=== PATIENT | female | born 1940 | race Caucasian/White ===

== ENCOUNTER 2016-08-11 14:46 | Inpatient (IN) | payer MEDICARE, BC ==
[~2016-08-11 14:46] MED LIST: PROP120; REST15CA
[2016-08-11 19:17] VITALS: BP 120/77; PULSE 94; RESP 16; TEMP 97.3; O2SAT 97
[2016-08-12 05:55] VITALS: BP 101/56; PULSE 67; RESP 18; TEMP 98.6
[2016-08-12 11:22] VITALS: BP 128/71; PULSE 62; RESP 16; TEMP 97.8; O2SAT 99
[2016-08-12] MEDS ORDERED: hydrOXYzine HCL 50 MG TAB PO PRN (13:15)
[2016-08-12] MEDS ORDERED: MAGNESIUM HYDROXIDE SUSP 30 ML CUP PO PRN (13:15)
[2016-08-12] MEDS ORDERED: ALUMINUM/MAGNESIUM/SIMETH 30 ML CUP PO PRN (13:15)
[2016-08-12] MEDS ORDERED: FLUMAZENIL 0.5 MG/5 ML VIAL IV PUSH PRN (13:15)
[2016-08-12] MEDS ORDERED: LORazepam 2 MG TAB PO PRN (13:15)
[2016-08-12] MEDS ORDERED: LORazepam 1 MG TAB PO PRN (13:15)
[2016-08-12] MEDS ORDERED: ACETAMINOPHEN 325 MG TAB PO PRN (13:15)
[2016-08-12] MEDS ORDERED: LORazepam 2 MG/ML VIAL IV PUSH PRN ×4 (13:15)
--- NOTE | 2016-08-12 13:33 | HHI.HP ---
Provisional Diagnosis Admission Date August 11, 2016 at 17:24 [place] I. Brief psychotic episode F 23, alcohol use Z 78.9 Certification of Person's Competence To Provide Express and Informed Consent I have personally examined Stefani Wilson , a person being served at [facility] on, August 12, 2016 13:11. Express and informed consent means consent voluntarily given in writing, by a competent person, after sufficient explanation and disclosure of the subject matter involved to enable the person to make a knowing and willful decision without any element of force, fraud, deceit, duress, or other form of constraint or coercion. This person is 18 years of age or older, is not now known to be incompetent to consent to treatment with a guardian advocate, and does not have a health care surrogate or proxy currently making medical treatment decisions. I have found this person to be one of the following: [] Competent to provide express and informed consent, as defined above, for voluntary admission to this facility and is competent to provide express and informed consent for treatment. He/she has the consistent capacity to make well reasoned, willful, and knowing decisions concerning his or her medical or mental health treatment. The person fully and consistently understands the purpose of the admission for examination/placement and is fully capable of personally exercising all rights assured under [place] [] Incompetent to provide express and informed consent to voluntary admission, and this is incompetent to provide express and informed consent to treatment. The person must be transferred to involuntary status and a petition for a guardian advocate filed with the Circuit Court. [] Refusing to provide express and informed consent to voluntary admission but is competent to provide express and informed consent for treatment. The person must be discharged or transferred to involuntary status. Form shall be completed within 24 hours of a person's arrival at the receiving facility and filed in the clinical record of each person: 1. Admitted on a voluntary basis 2. Permitted to provide express and informed consent to his/her own treatment 3. Allowed to transfer from involuntary to voluntary status 4. Prior to permitting a person to consent to his or her own treatment after having been previously found incompetent to consent to treatment. History of Present Illness Capacity: Lacks Capacity (patient lacks capacity to agree for admission, has capacity to agree for medication) HPI Patient is a 76-year-old white female comes here under Flores act from [facility] Flores act dated 08/11/16 0755 hours by a Parish huynh that report reviewed essentially stating that patient was seeing people and animals were not present in claiming that the major AP both/animals are gypsies a titer up then performed a [employer] [employer] maneuver of the seventh floor of her building. There stating the patient takes Ambien and Xanax but has not slept well for about 4 days. Patient's also stated that she fell earlier in the morning and it's unknown if she hit her head. It appears the patient became more angry and agitated with pink questioned by the commercial lawn specialist she also became more angry when her attempted to calm her down becoming more belligerent and appearing as if sure becoming violent. Patient seen screen at that facility urine toxicology positive for benzodiazepines and opiates. At the present time patient standing quietly with me in the eng counselor María Elena and nurse Martine present throughout session. Patient is an alert thin slender white female somewhat disheveled in appearance with a marked [place] accent speaking in a rapid pressured intense manner showing some anxiety and fine tremulousness. Patient appears fairly well oriented to place time and situation, other times also appears to be using approximations to cover perhaps some mild memory issues. She describes these people coming into her home speaking to her describes them as gypsies like nature though showing some rationalization with this. She became somewhat flustered as I question her more in detail. Patient states she has a PhD in psychology was quite active at the [employer] and some mental health programs there. She states that her is a psychiatrist and also worked for the [employer] from [facility] [employer] [facility]. She does make appropriate references to that area. When asked about her own mental health issues she became quite vague and defensive that appear she may have had some type of contact in the past. She does acknowledge being "high strung" like much of her family. She also acknowledges frequent alcohol use basically wine or "wind spritzers" though she denies any legal issues related to that. She makes vague illusion to perhaps using marijuana while in college herself. She denies any physical and/or sexual abuse. Denies any mental illness in her family of origin. This is her second marriage. She has 2 children by her first marriage and is a grandmother. Patient made of vague reference to perhaps a similar psychotic type episode a number of years ago. I did attempt to reach patient's was unsuccessful we will have a counselor attempt to reach him. Would like to environment to meet with us tomorrow morning. At the present time patient meets criteria for further observation under the Flores act thus I'll do first opinion requests a second opinion. Will have hospitalist consult less patient states some history of cholesterol issues and also to observe vague history of a fall. We'll place her on theciwa protocol due to the alcohol abuse history. Will refrain from any antipsychotics at the present time further observe we need further information also for the patient's perhaps a neurology consult might be indicated Review of Systems Constitutional: DENIES: Diaphoretic episodes, Fatigue, Fever, Weight gain, Weight loss, Chills, Dizziness, Change in appetite, Night Sweats Endocrine: DENIES: Abnorml menstrual pattern, Heat/cold intolerance, Polydipsia , Polyuria, Polyphagia Eyes: DENIES: Blurred vision, Diplopia, Eye inflammation, Eye pain, Vision loss , Photosensitivity, Double Vision Ears, nose, mouth, throat: DENIES: Tinnitus, Hearing loss, Vertigo, Nasal discharge, Oral lesions, Throat pain, Hoarseness, Ear Pain, Running Nose, Epistaxis, Sinus Pain, Toothache, Odynophagia Respiratory: DENIES: Apneas, Cough, Snoring, Wheezing, Hemoptysis, Sputum production, Shortness of breath Cardiovascular: DENIES: Chest pain, Palpitations, Syncope, Dyspnea on Exertion , PND, Lower Extremity Edema, Orthopnea, Claudication Gastrointestinal: DENIES: Abdominal pain, Black stools, Bloody stools, Constipation, Diarrhea, Nausea, Vomiting, Difficulty Swallowing, Anorexia Genitourinary: DENIES: Abnormal vaginal bleeding, Dysmenorrhea, Dyspareunia, Sexual dysfunction, Urinary frequency, Urinary incontinence, Urgency, Hematuria , Dysuria, Nocturia, Vaginal discharge Musculoskeletal: DENIES: Joint pain, Muscle aches, Stiffness, Joint Swelling, Back pain, Neck pain Integumentary: DENIES: Abnormal pigmentation, Pruritus, Rash, Nail changes, Breast masses, Breast skin changes, Nipple discharge Hematologic/lymphatic: DENIES: Bruising, Lymphadenopathy Immunologic/allergic: DENIES: Eczema, Urticaria Psychiatric: COMPLAINS OF: Anxiety, Confusion (quite vague and amorphous), Hallucinations (visual and auditory) Past Psych History Psychological trauma history Denies prior physical or sexual abuse Violence risk - others (6 mos) Low Violence risk - self (6 mos) Low Substance Abuse History Drugs/Alcohol past 12 months Patient states frequent alcohol use Past Family Social History Coded Allergies: No Known Allergies (Verified Allergy, Mild, 08/02/06) Reported Medications Temazepam (Restoril)15 Mg Cap 08/02/06 Propranolol ER (Inderal LA)120 Mg Capcr 08/02/06 Family History Patient denies history of mental illness in family of origin Social History Patient twice as 2 adult children and grandchildren by previous marriage Patient's Strengths (min. 2) Patient verbal cooperative able to express herself Physical Exam Patient seen screened a [facility] that exam reviewed and agreed with vital signs blood pressure 120/71 pulse 62 respirations 16 Vital Signs Vital Signs Date Time Temp Pulse Resp B/P Pulse Ox O2 Delivery O2 Flow Rate FiO2 08/12/16 11:22 97.8 62 16 128/71 99 I/O 08/11/16 08/11/16 08/12/16 08:00 16:00 00:00 Intake Total 0 ml Balance 0 ml Mental Status Examination Alert white female appears stated age slightly disheveled oriented to [facility] psychiatric unit in day though that appears to be some diffuse confusion with this also, she is overall cooperative mildly guarded with good eye contact Appearance Slightly disheveled Speech: Pressured, Rapid Orientation: x3 Memory: Impaired (describe) (vaguely fair) Thought Process: Linear Thought Content: Bizarre thinking Language Macedonian Fund of Knowledge Fair Hallucination Type: Auditory, Visual Attention and Concentration: Easily Distracted Suicidal Ideation: No (denies) Previous Suicide Attempts: No (denies) Homicidal Ideation: No (denies) Previous Homicide Attempts: No (denies) Insight: Poor Judgment: Poor Affect: Other (increase range and intensity) Mood: Euthymic, Anxious, Manic Motor Activity: Normal gait Assessment & Plan Problem List: (1) Brief psychotic disorder ICD Code: F23 (2) Alcohol use ICD Code: Z78.9 Assessment & Plan Estimated LOS 3-5: days at this time patient meets criteria for further observation under the Flores act thus I'll do first opinion requests second opinion. We will attempt to arrange meetings with patient's for tomorrow morning to gain further information. We will have a hospitalist consult was also. We'll place her on the ciwa protocol for now. Will refrain from any antipsychotics at the present time Discharge Planning To be determined Request HC Surrog/Guard Advoc?: No Bill Contreras MD August 12, 2016 13:33
--- NOTE | 2016-08-12 14:44 | PD.CONS ---
HPI Service [facility] Hospitalists Consult Requested By psych service Reason for Consult medical management Primary Care Physician Non-Staff Diagnoses: History of Present Illness The patient is a 76-year-old female with past medical history of hypertension, essential tremors, who came to inpatient psych for further evaluation. Hospitalist is consulted for medical management. The patient has no complaints at this time. Says she felt much better. Says her blood pressure is usually controlled and she is taking propanolol for essential tremors and not for blood pressure. She denies having any headaches, change of vision, motor or sensory deficit, palpitations, chest pain or shortness of breath. She has no urinary complaints. No nausea, vomiting, diarrhea or constipation. Review of Systems Except as stated in HPI: all other systems reviewed are Neg Past Family Social History Allergies: Coded Allergies: No Known Allergies (Verified , 08/02/06) Past Medical History Hypertension, essential tremors Past Surgical History Tonsillectomy 4 ya Reported Medications Reported Meds & Active Scripts Active Reported Restoril (Temazepam) 15 Mg Cap Inderal LA (Propranolol HCl) 120 Mg Capcr Family History Denies any medical problems in her family Social History Denies alcohol use, illicit drug use or tobacco use. Physical Exam Vital Signs Vital Signs Date Time Temp Pulse Resp B/P Pulse Ox O2 Delivery O2 Flow Rate FiO2 08/12/16 11:22 97.8 62 16 128/71 99 08/12/16 05:55 98.6 67 18 101/56 08/11/16 19:17 97.3 94 16 120/77 97 Physical Exam GENERAL: This is a pleasant 76-year-old female, well-nourished, well-developed patient, in no apparent distress. Pressured speech. SKIN: No rashes, ecchymoses or lesions. Cool and dry. HEAD: Atraumatic. Normocephalic. No temporal or scalp tenderness. EYES: Pupils equal round and reactive. Extraocular motions intact. No scleral icterus. No injection or drainage. ENT: Nose without bleeding, purulent drainage or septal hematoma. Throat without erythema, tonsillar hypertrophy or exudate. Uvula midline. Airway patent. NECK: Trachea midline. No JVD or lymphadenopathy. Supple, nontender, no meningeal signs. CARDIOVASCULAR: Regular rate and rhythm without murmurs, gallops, or rubs. RESPIRATORY: Clear to auscultation. Breath sounds equal bilaterally. No wheezes , rales, or rhonchi. GASTROINTESTINAL: Abdomen soft, non-tender, nondistended. No hepato-splenomegaly , or palpable masses. No guarding. MUSCULOSKELETAL: Extremities without clubbing, cyanosis, or edema. No joint tenderness, effusion, or edema noted. No calf tenderness. Negative Homans sign bilaterally. NEUROLOGICAL: Awake and alert. Cranial nerves II through XII intact. Motor and sensory grossly within normal limits. Five out of 5 muscle strength in all muscle groups. Normal speech. Assessment and Plan Assessment and Plan 76 yo F with Psychosis , unspecified. Management per psychiatry Hypertension/ essential tremors. Continue Propanolol ER 120 mg daily. Monitor BP. BP appears stable at this time. DVT ppx : ambulation. Discussed Condition With patient, nurse Zoë Villalobos MD August 12, 2016 14:44
[2016-08-12 17:16] VITALS: BP 138/67; PULSE 78; TEMP 98.3; O2SAT 99
[2016-08-12] MEDS: REMOVE OLD NICODERM (NICOTINE) PATCH T-DERMAL SCH (21:00)
[2016-08-13 05:33] VITALS: BP 123/64; PULSE 89; RESP 18; TEMP 98.7
[2016-08-13 06:00] VITALS: BP 123/64; PULSE 89; RESP 18; TEMP 98.7; O2SAT 93
[2016-08-13] MEDS: NICOTINE 21 MG/24 HR PATCH T-DERMAL SCH (09:00)
[2016-08-13] MEDS: PROPRANOLOL HCL LA 120 MG CAP PO SCH (09:00)
[2016-08-13 10:00] VITALS: BP 145/77; PULSE 80; RESP 16
--- NOTE | 2016-08-13 10:37 | PD.CONS ---
Provisional Diagnosis Admission Date August 11, 2016 at 17:24 [place] I. Brief psychotic episode F 23, alcohol use Z 78.9 History of Present Illness Service Psychiatry Consult Requested By Primary Care Physician Non-Staff HPI Patient is a 76-year-old white female [facility] Flores act dated 08/11/16 0755 hours by a Parish huynh that report reviewed essentially stating that patient was seeing people and animals were not present in claiming that the major AP both/animals are gypsies a titer up then performed a [place] maneuver of the seventh floor of her building. There stating the patient takes Ambien and Xanax but has not slept well for about 4 days. Patient's also stated that she fell earlier in the morning and it's unknown if she hit her head. It appears the patient became more angry and agitated with pink questioned by the law secretary she also became more angry when her attempted to calm her down becoming more belligerent and appearing as if sure becoming violent. Patient seen screen at that facility urine toxicology positive for benzodiazepines and opiates. At the present time patient standing quietly with me in the eng counselor María Elena and nurse Martine present throughout session. Patient is an alert thin slender white female somewhat disheveled in appearance with a marked Belarusian accent speaking in a rapid pressured intense manner showing some anxiety and fine tremulousness. Patient appears fairly well oriented to place time and situation, other times also appears to be using approximations to cover perhaps some mild memory issues. She describes these people coming into her home speaking to her describes them as gypsies like nature though showing some rationalization with this. She became somewhat flustered as I question her more in detail. Patient states she has a PhD in psychology was quite active at the [facility] and some mental health programs there. She states that her is a psychiatrist and also worked for the [employer] from [employer]. She does make appropriate references to that area. When asked about her own mental health issues she became quite vague and defensive that appear she may have had some type of contact in the past. She does acknowledge being "high strung" like much of her family. She also acknowledges frequent alcohol use basically wine or "wind spritzers" though she denies any legal issues related to that. She makes vague illusion to perhaps using marijuana while in college herself. She denies any physical and/or sexual abuse. Denies any mental illness in her family of origin. This is her second marriage. She has 2 children by her first marriage and is a grandmother. Patient made of vague reference to perhaps a similar psychotic type episode a number of years ago. I did attempt to reach patient's was unsuccessful we will have a counselor attempt to reach him. Would like to environment to meet with us tomorrow morning. At the present time patient meets criteria for further observation under the Flores act thus I'll do first opinion requests a second opinion. Will have hospitalist consult less patient states some history of cholesterol issues and also to observe vague history of a fall. We'll place her on theciwa protocol due to the alcohol abuse history. Will refrain from any antipsychotics at the present time further observe we need further information also for the patient's perhaps a neurology consult might be indicated Past Family Social History Coded Allergies: No Known Allergies (Verified , 08/02/06) Reported Medications Temazepam (Restoril)15 Mg Cap 08/02/06 Propranolol ER (Inderal LA)120 Mg Capcr 08/02/06 Current Medications Medications (Trade) Dose Ordered Sig/Katya Route Start Time Stop Time Status Last Admin (Tylenol) 650 mg Q4H PRN PO 08/12/16 13:15 (Milk Of Magnesia Liq) 30 ml DAILY PRN PO 08/12/16 13:15 (Mag-Al Plus Susp Liq) 30 ml Q6H PRN PO 08/12/16 13:15 (Habitrol 21 Mg Patch.24 Hr) 1 patch DAILY T-DERMAL 08/13/16 09:00 (Atarax) 50 mg Q6H PRN PO 08/12/16 13:15 Hold (Romazicon Inj) 0.2 mg Q1M PRN IV PUSH 08/12/16 13:15 (Ativan) 1 mg Q4H PRN PO 08/12/16 13:15 Hold (Ativan Inj) 1 mg Q4H PRN IV PUSH 08/12/16 13:15 Hold (Ativan) 2 mg Q2H PRN PO 08/12/16 13:15 Hold (Ativan Inj) 2 mg Q2H PRN IV PUSH 08/12/16 13:15 Hold (Ativan Inj) 2 mg Q1H PRN IV PUSH 08/12/16 13:15 Hold (Ativan Inj) 2 mg Q15M PRN IV PUSH 08/12/16 13:15 Hold Miscellaneous Information 1 HS T-DERMAL 08/12/16 21:00 (Inderal La) 120 mg DAILY PO 08/13/16 09:00 Patient's Strengths (min. 2) Patient verbal cooperative able to express herself Physical Exam Vital Signs Vital Signs Date Time Temp Pulse Resp B/P Pulse Ox O2 Delivery O2 Flow Rate FiO2 08/13/16 06:00 98.7 89 18 123/64 93 I/O 08/12/16 08/12/16 08/13/16 08:00 16:00 00:00 Intake Total 240 ml 480 ml Balance 240 ml 480 ml Mental Status Examination Speech: Pressured, Rapid Orientation: x3 Memory: Impaired (describe) (vaguely fair) Thought Process: Linear Thought Content: Bizarre thinking Hallucination Type: Auditory, Visual Attention and Concentration: Easily Distracted Suicidal Ideation: No (denies) Previous Suicide Attempts: No (denies) Homicidal Ideation: No (denies) Previous Homicide Attempts: No (denies) Insight: Poor Judgment: Poor Affect: Other (increase range and intensity) Mood: Euthymic, Anxious, Manic Motor Activity: Normal gait Assessment & Plan Problem List: (1) Brief psychotic disorder ICD Code: F23 (2) Alcohol use ICD Code: Z78.9 Assessment & Plan Estimated LOS: days Request HC Surrog/Guard Advoc?: No Bart Jacobs MD August 13, 2016 10:37
--- NOTE | 2016-08-13 13:05 | HHI.PR ---
Subjective Remarks In bed, appears in nad. She is feeling good today. No complaints. No palpitations . No tremors. Objective Vitals Vital Signs Date Time Temp Pulse Resp B/P Pulse Ox O2 Delivery O2 Flow Rate FiO2 08/13/16 06:00 98.7 89 18 123/64 93 08/13/16 05:33 98.7 89 18 123/64 08/12/16 17:16 98.3 78 138/67 99 I/O 08/12/16 08/12/16 08/12/16 08/13/16 08/13/16 08/13/16 07:00 15:00 23:00 07:00 15:00 23:00 Intake Total 240 ml 480 ml 240 ml Balance 240 ml 480 ml 240 ml Intake Oral 240 ml 480 ml 240 ml # Voids 1 1 4 Objective Remarks GENERAL: This is a pleasant 76-year-old female, well-nourished, well-developed patient, in no apparent distress. Pressured speech. SKIN: No rashes, ecchymoses or lesions. Cool and dry. HEAD: Atraumatic. Normocephalic. No temporal or scalp tenderness. EYES: Pupils equal round and reactive. Extraocular motions intact. No scleral icterus. No injection or drainage. ENT: Nose without bleeding, purulent drainage or septal hematoma. Throat without erythema, tonsillar hypertrophy or exudate. Uvula midline. Airway patent. NECK: Trachea midline. No JVD or lymphadenopathy. Supple, nontender, no meningeal signs. CARDIOVASCULAR: Regular rate and rhythm without murmurs, gallops, or rubs. RESPIRATORY: Clear to auscultation. Breath sounds equal bilaterally. No wheezes , rales, or rhonchi. GASTROINTESTINAL: Abdomen soft, non-tender, nondistended. No hepato-splenomegaly , or palpable masses. No guarding. MUSCULOSKELETAL: Extremities without clubbing, cyanosis, or edema. No joint tenderness, effusion, or edema noted. No calf tenderness. Negative Homans sign bilaterally. NEUROLOGICAL: Awake and alert. Cranial nerves II through XII intact. Motor and sensory grossly within normal limits. Five out of 5 muscle strength in all muscle groups. Normal speech. A/P Assessment and Plan 76 yo F with Psychosis , unspecified. Management per psychiatry Hypertension/ essential tremors. Continue Propanolol ER 120 mg daily. Monitor BP. BP appears stable at this time. DVT ppx : ambulation. Discussed Condition With patient, nurse Patient is stable at this time. Medically cleared. To follow up as OP with her pCP and consultants. Hospitalist will sign off. Reconsult as need. Zoë Villalobos MD August 13, 2016 13:05
[2016-08-13 14:04] VITALS: BP 132/73; PULSE 87
--- NOTE | 2016-08-13 14:14 | HHI.PYPN ---
Subjective Remarks We met initially with patient's this a.m. along with counselor María Elena. has history of patient being somewhat "mcmanus. That he has had impression that she showed signs of mood instability for significant period of time. But she did have talk therapy with a psychiatrist in the 1970s for various issues. He also acknowledged some mood lability and issues with her family of origin. He himself is a psychiatrist, acknowledges being somewhat passive related to his 's assertiveness and mood issues. Patient then came into my office, she immediately showed rapid pressured firing insulting demanding and manipulative attitude towards her ignoring my request that she allow him to responses are me to respond saying that she "I'm not finished yet" is noted with almost cringed under her verbal assault. Patient showing no insight into her behaviors and the possibility of her having some mental health issues. Present states that she has had these issues of denial for number of years related to both medical and mental health issues. Though he does agree for the need for her to be further assessed here. We do have the hospitalist assessing her. Will have neurology attempt to do the consultation. Of interest though when patient's left the unit she quieted down to just a somewhat confused and wandering. For now continue observation and assessment Review of Systems Except as stated in HPI: all other systems reviewed are Neg Objective Alert: Yes [place]: Person, Place Mood: Agitated, Angry, Anxious, Oppositional Affect: Labile, Manic Memory Intact: Comment (poor) Hallucinations: Auditory, Visual Delusions: Yes Delusion Type: Paranoid Suicidal: Ideation (denies) Homicidal: Ideation (denies) Insight/Judgment Very poor Vitals/IOs Vital Signs Date Time Temp Pulse Resp B/P Pulse Ox O2 Delivery O2 Flow Rate FiO2 08/13/16 14:04 87 132/73 08/13/16 10:00 16 08/13/16 06:00 98.7 93 Intake and Output 08/12/16 08/12/16 08/13/16 08:00 16:00 00:00 Intake Total 240 ml 480 ml Balance 240 ml 480 ml Assessment & Plan Problem List: (1) Brief psychotic disorder ICD Code: F23 (2) Alcohol use ICD Code: Z78.9 Assessment & Plan Estimated LOS: days patient continue psychotic with continued manic type behaviors. Showing no insight into her disease. Will have neurology consult. I do question if perhaps patient does not have capacity and may need a health care surrogate/guardian advocate. We'll continue to consider that Justification for Cont. Inpt. At this time patient will decompensate placed in a lower level of care Discharge Planning To be determined Request HC Surrog/Guard Advoc?: No Bill Contreras MD August 13, 2016 14:14
[2016-08-13] MEDS ORDERED: PADIMATE (CHAPSTICK) 4.5 GM TUBE TOPICAL PRN (14:30)
--- NOTE | 2016-08-13 16:15 | PD.CONS ---
Provisional Diagnosis Admission Date August 11, 2016 at 17:24 Laona I. 1. Unspecified mood disorder Rule-out mood disorder, such as bipolar disorder presently mixed, perhaps with psychotic features Rule-out delirium or mood disorder due to [facility] [place]-out mood disorder due to a substance Laona II. 1. Some obsessive-compulsive personality traits Laona V. GAF is unclear History of Present Illness Service Psychiatry Consult Requested By Dr. Contreras Reason for Consult Second opinion for involuntary psychiatric hospitalization. Primary Care Physician Non-Staff HPI From Dr. Contreras's H&P: Patient is a 76-year-old white female comes here under Flores act from [facility] Flores act dated 08/11/16 0755 hours by a Parish huynh that report reviewed essentially stating that patient was seeing people and animals were not present in claiming that the major AP both/animals are gypsies a titer up then performed a [place] maneuver of the seventh floor of her building. There stating the patient takes Ambien and Xanax but has not slept well for about 4 days. Patient's also stated that she fell earlier in the morning and it's unknown if she hit her head. It appears the patient became more angry and agitated with pink questioned by the lawn care professional she also became more angry when her attempted to calm her down becoming more belligerent and appearing as if sure becoming violent. Patient seen screen at that facility urine toxicology positive for benzodiazepines and opiates. At the present time patient standing quietly with me in the neg counselor María Elena and nurse Martine present throughout session. Patient is an alert thin slender white female somewhat disheveled in appearance with a marked [place] accent speaking in a rapid pressured intense manner showing some anxiety and fine tremulousness. Patient appears fairly well oriented to place time and situation, other times also appears to be using approximations to cover perhaps some mild memory issues. She describes these people coming into her home speaking to her describes them as gypsies like nature though showing some rationalization with this. She became somewhat flustered as I question her more in detail. Patient states she has a PhD in psychology was quite active at the [facility] and some mental health programs there. She states that her is a psychiatrist and also worked for the [employer] [employer] from [facility]. She does make appropriate references to that area. When asked about her own mental health issues she became quite vague and defensive that appear she may have had some type of contact in the past. She does acknowledge being "high strung" like much of her family. She also acknowledges frequent alcohol use basically wine or "wind spritzers" though she denies any legal issues related to that. She makes vague illusion to perhaps using marijuana while in college herself. She denies any physical and/or sexual abuse. Denies any mental illness in her family of origin. This is her second marriage. She has 2 children by her first marriage and is a grandmother. Patient made of vague reference to perhaps a similar psychotic type episode a number of years ago. I did attempt to reach patient's was unsuccessful we will have a counselor attempt to reach him. Would like to environment to meet with us tomorrow morning. At the present time patient meets criteria for further observation under the Flores act thus I'll do first opinion requests a second opinion. Will have hospitalist consult less patient states some history of cholesterol issues and also to observe vague history of a fall. We'll place her on theciwa protocol due to the alcohol abuse history. Will refrain from any antipsychotics at the present time further observe we need further information also for the patient's perhaps a neurology consult might be indicated On my examination today: Patient seen and examined. Chart reviewed. Documentation from outside hospital reviewed. Case discussed with RN. On my examination today, patient's thought process is circumstantial, at times tangential. She is an extremely prolix historian, and her speech is pressured and rambling, with numerous discursive asides. She is difficult to interrupt. She loses her train of thought on more than one occasion. It is therefore exceedingly difficult to obtain a linear narrative. As near as I can tell, the patient continues to believe that there were intruders in her home. She blames her for leaving several of the doors unlocked. She says that she went to speak with the GOVERNMENT AFFAIRS MANAGER of the condo board ("an [employer] richard" and "I have found that VPs [of condos] are not very successful, and this one wasn't") who subsequently called the police. She takes particular umbrage that the officer and the GOVERNMENT AFFAIRS MANAGER termed her belief about the intruders a delusion. Affect is generally dysphoric. She reports poor sleep. She is suspicious of the motives of staff and alludes to a "cover up." She is somewhat querulous and faultfinding. Obsessive compulsive personalty traits are noted. She does not verbalize any SI or HI. Although I spent nearly an hour in consultation with this patient, pertinent clinical information is otherwise limited because of her verbosity and thought disorder. Patient declines to provide past psychiatric, family, chemical dependency or social history noting that 4 other people have asked these questions. She does allude to a previous involuntary commitment in [place] (although this may have been in reference to her , her explanation of this episode is particularly opaque) but does not describe any history of suicide attempts. She does not describe any drug or alcohol issues. She is . 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 She reports that she is well-connected in political circles in [place] where she is from. Review of Systems ROS Limitations: Poor Historian Other Limited ROS Past Family Social History Coded Allergies: No Known Allergies (Verified , 08/02/06) Past Medical History See EMR Reported Medications Temazepam (Restoril)15 Mg Cap 08/02/06 Propranolol ER (Inderal LA)120 Mg Capcr 08/02/06 Current Medications Medications (Trade) Dose Ordered Sig/Katya Route Start Time Stop Time Status Last Admin (Tylenol) 650 mg Q4H PRN PO 08/12/16 13:15 (Milk Of Magnesia Liq) 30 ml DAILY PRN PO 08/12/16 13:15 (Mag-Al Plus Susp Liq) 30 ml Q6H PRN PO 08/12/16 13:15 (Habitrol 21 Mg Patch.24 Hr) 1 patch DAILY T-DERMAL 08/13/16 09:00 (Atarax) 50 mg Q6H PRN PO 08/12/16 13:15 Hold (Romazicon Inj) 0.2 mg Q1M PRN IV PUSH 08/12/16 13:15 (Ativan) 1 mg Q4H PRN PO 08/12/16 13:15 Hold (Ativan Inj) 1 mg Q4H PRN IV PUSH 08/12/16 13:15 Hold (Ativan) 2 mg Q2H PRN PO 08/12/16 13:15 Hold (Ativan Inj) 2 mg Q2H PRN IV PUSH 08/12/16 13:15 Hold (Ativan Inj) 2 mg Q1H PRN IV PUSH 08/12/16 13:15 Hold (Ativan Inj) 2 mg Q15M PRN IV PUSH 08/12/16 13:15 Hold Miscellaneous Information 1 HS T-DERMAL 08/12/16 21:00 (Inderal La) 120 mg DAILY PO 08/13/16 09:00 (Chapstick) 1 applic UNSCH PRN TOPICAL 08/13/16 14:30 Family History See above Social History See above Patient's Strengths (min. 2) In a monitored setting. Verbally fluent. Physical Exam Physical examination completed by hospitalist application packaging consultant. On my examination today, patient appears to be in no acute physical distress. She does seem generally tremulous and reports a history of essential tremor. She also has occasional, forceful closure of her eyelids, perhaps representing a tic or blepharospasm. No other motor abnormalities noted. Labs and vital signs reviewed: Vital Signs Vital Signs Date Time Temp Pulse Resp B/P Pulse Ox O2 Delivery O2 Flow Rate FiO2 08/13/16 14:04 87 132/73 08/13/16 10:00 16 08/13/16 06:00 98.7 93 I/O 08/12/16 08/12/16 08/13/16 08:00 16:00 00:00 Intake Total 240 ml 480 ml Balance 240 ml 480 ml Lab Results Labs from outside hospital reviewed. I note patient's UTox is positive for BZD and opiates. Her alcohol level was undetectable. Mental Status Examination Patient is well dressed and well groomed. She is awake and alert and oriented to person and place at least. Motor exam as above. Speech is rambling and pressured. Language and fund of knowledge are above average. Affect is restricted and dysphoric. Thought process is circumstantial, at times tangential. Associations are somewhat loose. Patient is presently suspicious but no barber delusional material is noted otherwise. She is not responding to internal stimuli. She does not verbalize any suicidal or homicidal ideation. Insight and judgement at present are unclear. Assessment & Plan Problem List: (1) Mood disorder ICD Code: F39 Assessment & Plan Form of patient's current illness is suggestive of a mixed affective state. Especially prominent is her degree of thought disorder and pressured speech. From what I can gather, she is significantly off of her baseline. There may be a family history of affective illness per the counselor's notes. Given the totality of the patient's case, I am concerned that she has the potential for significant functional impairment as a consequence of her current mental state and bears inpatient observation and stabilization if necessary. I soil and plant scientist that the patient meets criteria for involuntary psychiatric hospitalization under the Flores Act. I have completed the second opinion paperwork. Further care as per Dr. Contreras. Thank you very much for this consultation. Signing off. Bart Jacobs MD August 13, 2016 16:15
[2016-08-13 17:17] VITALS: BP 138/84; PULSE 94; RESP 18; TEMP 97.4
[2016-08-13] MEDS: REMOVE OLD NICODERM (NICOTINE) PATCH T-DERMAL SCH (21:00)
[2016-08-14 06:32] VITALS: BP 123/68; PULSE 86; RESP 16; TEMP 98.5; O2SAT 99
[2016-08-14] MEDS: NICOTINE 21 MG/24 HR PATCH T-DERMAL SCH (09:00)
[2016-08-14] MEDS: PROPRANOLOL HCL LA 120 MG CAP PO SCH (10:09)
[2016-08-14] MEDS ORDERED: ZIPRASIDONE MESYLATE 20 MG VIAL IM SCH (12:15)
[2016-08-14] MEDS ORDERED: ZIPRASIDONE HCL 20 MG CAP PO SCH (12:15)
--- NOTE | 2016-08-14 12:28 | HHI.PYPN ---
Subjective Remarks Patient seen in her room with nurse Martine, patient in bed with covers to her chin. Chart reviewed. Patient initially somewhat calm with me though continues to deny mental illness continues to consistently and persistently deflect all questions about her behaviors onto her perceived issues with her . Patient continues to minimize any contact she has had with our treatment team.. I did review our meeting yesterday with her and her , this cluster becomes somewhat more angry with return to her rapid pressured speech irritability with manic overloads and the psychotic features. I later talked to patient's separately who came in for visitation. He continues to agree with our impression of her echo with psychosis and her need for medication. At this time I also feel patient does not have capacity to agree to medication treatment also thus I will ask for healthcare surrogate and a guardian advocate. is willing to become health care surrogate I did discuss first medications with them he is willing for us to offer her Geodon twice a day orally of refuses IM in its place. We will start Geodon 5 mg by mouth twice a day after mealsrefuses then 2.5 mg Geodon IM twice a day after meals in its place. This time I feel patient's diagnosis may be further refined as--bipolar disorder current episode echo severe with psychotic features f 31.2 Review of Systems Except as stated in HPI: all other systems reviewed are Neg Objective Alert: Yes [place]: Person, Place Mood: Agitated, Angry, Anxious, Oppositional Affect: Labile, Manic Memory Intact: Comment (poor) Hallucinations: Auditory, Visual Delusions: Yes Delusion Type: Paranoid Suicidal: Ideation (denies) Homicidal: Ideation (denies) Insight/Judgment Very poor Vitals/IOs Vital Signs Date Time Temp Pulse Resp B/P Pulse Ox O2 Delivery O2 Flow Rate FiO2 08/14/16 06:32 98.5 86 16 123/68 99 Intake and Output 08/13/16 08/13/16 08/14/16 08:00 16:00 00:00 Intake Total 240 ml 240 ml 300 ml Balance 240 ml 240 ml 300 ml Assessment & Plan Problem List: (1) Bipolar disorder, current episode manic severe with psychotic features ICD Code: F31.2 Assessment & Plan Estimated LOS: days patient continues manic with rapid pressured speech also continue psychotic and delusional. Patient's met with me today and agree with diagnosis and treatment as mentioned above. Is above I also feel patient at this time does not have capacity to make decisions concerning her treatment thus I will ask for healthcare surrogate and guardian advocate Also see above refinement of patient's diagnosis to bipolar disorder current episode manic severe with psychotic features Justification for Cont. Inpt. At this time patient will decompensate and placed in a lower level of care Discharge Planning To be determined Request HC Surrog/Guard Advoc?: Yes Bill Contreras MD August 14, 2016 12:28
[2016-08-14 18:22] VITALS: BP 149/102; PULSE 103; RESP 16; TEMP 98.9
--- NOTE | 2016-08-14 19:37 | MB ---
cc: KORTNEY GOULD M.D. DATE OF CONSULTATION: 08/14/2016 REASON FOR CONSULTATION: Question of organic component to the patient's psychosis. HISTORY OF PRESENT ILLNESS: Mrs. Wilson 76-year-old woman who was admitted to the hospital via Flores Act with a complaint of seeing people and animals not present with delusions as well. The patient has become more agitated and angry as well. She denies any headaches. She denies any balance difficulty. She states she has not had any trouble with her memory. PAST MEDICAL HISTORY: 1. History of hypertension. 2. Tremors. ALLERGIES: None known. CURRENT MEDICATIONS: 1. Geodon 5 milligrams IM at bedtime, 20 milligrams p.o. at bedtime. 2. Inderal long acting 120 milligrams daily. 3. Tylenol. 4. Milk of magnesia p.r.n. NEUROLOGIC EXAMINATION: VITAL SIGNS: Blood pressure 114/102, pulse 103, respirations are 16, temperature 99 degrees. HIGHER CORTICAL FUNCTIONS: She is alert. She is oriented x3, recalls one out of three objects in three minutes. She has very pressured speech, very confused as well as what appears to be delusional. She can name objects normally and there are no frontal release signs. Her speech is fluent with no paraphasic errors. There is no visual spatial neglect. CRANIAL NERVES: Cranial nerves are intact. MOTOR: On motor exam she has normal strength and tone of all groups in both upper and lower extremities. There is no drift. Fine motor skills are within normal limits. REFLEXES: Reflexes 1+ symmetric. IMPRESSION: The patient has significant psychotic type symptoms and manic type behavior at the present time. Regarding the possibility of an organic etiology, would like to perform some testing if the patient is able to cooperate. MRI of the brain would be helpful, and also EEG. Labs including a thyroid panel, B12 level, sedimentation rate, GIANCARLO, lupus anticoagulant and also check urine porphyrin screen. MD LEENA Rivas/CJ /7:13 PM /7:23 PM
[2016-08-14] MEDS: REMOVE OLD NICODERM (NICOTINE) PATCH T-DERMAL SCH (20:46)
[2016-08-14] MEDS: ZIPRASIDONE HCL 20 MG CAP PO SCH (21:00)
[2016-08-14] MEDS: ZIPRASIDONE MESYLATE 20 MG VIAL IM SCH (22:24)
[2016-08-14 22:33] LABS: FREE T4 1.79 NG/DL (0.76-1.46)
[2016-08-15 06:20] VITALS: BP 146/67; PULSE 67; RESP 16; TEMP 97.4; O2SAT 98
[2016-08-15] MEDS: NICOTINE 21 MG/24 HR PATCH T-DERMAL SCH (09:00)
--- NOTE | 2016-08-15 09:26 | HHI.PYPN ---
Subjective Remarks Patient seen and examined with nurse in weekend coverage. Chart reviewed. Case discussed with nursing staff reports that the patient remains hyperverbal and manic. I see the patient initially sitting on the floor in the day area. She gets up and goes to her room and I note that she is gesturing to herself. When nurse and I go to examine the patient, she remains quite scattered with loosening of associations. Speech remains pressured. She says that the Geodon , which she received IM last night because she felt somewhat nauseated apparently, made her "100% worse" in the sense of feeling activated. She complains of ongoing difficulty with sleep. We discussed the possibility of replacing the Geodon with a more sedating antipsychotic such as Zyprexa, but nurse has called over to patient's and healthcare surrogate, and he is reportedly concerned about the possible effects on blood glucose. No physical complaints or other side effects from medications noted. Review of Systems ROS Limitations: Poor Historian Except as stated in HPI: all other systems reviewed are Neg Objective Alert: Yes [place]: Person, Place Mood: Anxious Affect: Labile Memory Intact: Comment (Not assessed) Hallucinations: Other (No AVH reported but does appear somewhat internally preoccupied.) Delusions: No Delusion Type: Other (No delusions elicited today) Suicidal: Ideation (No SI) Homicidal: Ideation (No HI) Insight/Judgment Poor Remarks No new motor abnormalities noted. Thought process with significant loosening of association. Speech pressured and rambling. Labs Test 08/14/16 08/14/16 21:25 21:29 Vitamin B12 Level 551 PG/ML Free Thyroxine 1.79 NG/DL Thyroid Stimulating Hormone 1.420 uIU/ML 3rd Gen Erythrocyte Sedimentation Rate 12 mm/hr Labs reviewed. Free T4 noted to be mildly elevated. Vitals/IOs Vital Signs Date Time Temp Pulse Resp B/P Pulse Ox O2 Delivery O2 Flow Rate FiO2 08/15/16 06:20 97.4 67 16 146/67 98 Intake and Output 08/14/16 08/14/16 08/15/16 08:00 16:00 00:00 Intake Total 120 ml 480 ml 360 ml Balance 120 ml 480 ml 360 ml Assessment & Plan Problem List: (1) Bipolar disorder, current episode manic severe with psychotic features ICD Code: F31.2 Assessment & Plan Continue Geodon 20mg PO/5mg IM as ordered for now with plans for judicious titration to effect. No physical complaints at this time. Neurology input appreciated. Continue to monitor on inpatient unit. Justification for Cont. Inpt. High risk for decompensation in a less restrictive environment. Discharge Planning Per Dr. Contreras Request HC Surrog/Guard Advoc?: Yes Bart Jacobs MD August 15, 2016 09:26
[2016-08-15] MEDS: PROPRANOLOL HCL LA 120 MG CAP PO SCH (09:31)
--- NOTE | 2016-08-15 17:47 | RADRPT ---
EXAM DATE/TIME: 08/15/2016 17:13 [place] COMPARISON: No previous studies available for comparison. INDICATIONS : Confusion. MEDICAL HISTORY : Hypertension. SURGICAL HISTORY : Tubal ligation. ENCOUNTER: Initial ACUITY: 1 day PAIN SCORE: 0/10 LOCATION: cranial TECHNIQUE: Multiplanar, multisequence MRI of the brain was performed without contrast. FINDINGS: CEREBRUM: The ventricles are normal for age. No evidence of midline shift, mass lesion, hemorrhage or acute in farction. No extraaxial fluid collections are seen. The pituitary gland and suprasellar cistern are normal in configuration. WHITE MATTER: Mild periventricular white matter small vessel ischemic changes. POSTERIOR FOSSA: The cerebellum and brainstem are intact. The 4th ventricle is midline. The cerebellopontine angle is unremarkable. The cerebellar tonsils are normal in position. DIFFUSION IMAGING: No focal areas of restricted diffusion are seen. No evidence of acute infarction. EXTRACRANIAL: The visualized portions of the orbits and paranasal sinuses are unremarkable. CONCLUSION: 1. Mild periventricular white matter small vessel ischemic changes bilaterally. 2. No acute infarct, acute hemorrhage, mass effect or extra axial fluid collections. Lopez Bright MD on August 15, 2016 at 17:44 Board Certified Radiologist. This report was verified electronically.
[2016-08-15 19:14] VITALS: BP 146/77; PULSE 86; TEMP 98.8; O2SAT 98
[2016-08-15] MEDS: ZIPRASIDONE MESYLATE 20 MG VIAL IM SCH (21:00)
[2016-08-15] MEDS: REMOVE OLD NICODERM (NICOTINE) PATCH T-DERMAL SCH (21:00)
[2016-08-15] MEDS: ZIPRASIDONE HCL 20 MG CAP PO SCH (21:56)
[2016-08-16 05:40] VITALS: BP 146/95; PULSE 112; RESP 15; TEMP 98.5; O2SAT 98
[2016-08-16] MEDS: PROPRANOLOL HCL LA 120 MG CAP PO SCH (08:32)
[2016-08-16] MEDS: NICOTINE 21 MG/24 HR PATCH T-DERMAL SCH (08:35)
--- NOTE | 2016-08-16 12:13 | HHI.PYPN ---
Subjective Remarks On psychiatric evaluation today the patient is found in her bed, very shaky, talkative, disoriented, patient says that she is not sure what is she here, she cannot remember the reason of her hospitalization. Patient denies any previous psychiatric history, she reports good mood, however, she has pressured speech, tangentiality, flight of ideas. She denies suicidal or homicidal ideation, she denies visual and auditory hallucinations. Patient has been compliant to medications, no agitation or aggressive behavior reported. Review of Systems Neurologic: COMPLAINS OF: Tremor Psychiatric: COMPLAINS OF: Mood changes, Delusions Objective Alert: Yes [place]: Person Mood: Anxious Affect: Labile, Other (elevated) Memory Intact: Comment (Not assessed) Hallucinations: Other (No AVH reported but does appear somewhat internally preoccupied.) Delusions: No Delusion Type: Other (No delusions elicited today) Suicidal: Ideation (No SI) Homicidal: Ideation (No HI) Insight/Judgment Poor Vitals/IOs Vital Signs Date Time Temp Pulse Resp B/P Pulse Ox O2 Delivery O2 Flow Rate FiO2 08/16/16 05:40 98.5 112 15 146/95 98 Intake and Output 08/15/16 08/15/16 08/15/16 07:59 15:59 23:59 Intake Total 240 ml 600 ml Balance 240 ml 600 ml Assessment & Plan Problem List: (1) Bipolar disorder, current episode manic severe with psychotic features Assessment & Plan: Since patient is tremulous and shaky, Will will order Ativan 2 mg by mouth stat. She has been described as anxious through the weekend, will add clonazepam 0.5 mg 3 times a day. ICD Code: F31.2 Assessment & Plan Estimated LOS: days Justification for Cont. Inpt. Patient has a significantly increased risk to decompensate out of the psychiatric unit. Request HC Surrog/Guard Advoc?: Yes Patrick Anguiano MD August 16, 2016 12:13
[2016-08-16] MEDS ORDERED: LORazepam 2 MG TAB PO ONE (12:15)
[2016-08-16] MEDS: clonazePAM 0.5 MG TAB PO SCH ×2 (14:00→20:26)
[2016-08-16 20:15] VITALS: BP 118/70; PULSE 85; RESP 16; TEMP 98.2; O2SAT 97
[2016-08-16] MEDS: ZIPRASIDONE HCL 20 MG CAP PO SCH (20:25)
[2016-08-16] MEDS: REMOVE OLD NICODERM (NICOTINE) PATCH T-DERMAL SCH (20:26)
[2016-08-16] MEDS: ZIPRASIDONE MESYLATE 20 MG VIAL IM SCH (20:26)
--- NOTE | 2016-08-16 20:49 | MG ---
cc: AMNA EDWARDS M.D. Lab No: [id number] Date: Age: 76 Sex: F Race: REFERRING: Manuel. ROOM: [facility]. Awake, drowsy asleep with photic stimulation. The patient is hyperventilating throughout the beginning of the study per garage door technician. MRI shows white matter changes. A 76-year-old woman Flores Acted for seeing people and animals not present. History of hallucinations, anxiety, tremors. Medicines are Inderal and Geodon. DESCRIPTION OF RECORD: A lot of sweats waves seen but overall the background is a 6 Hz theta frequency. Noted that she is hyperventilating when not asked. There is a of artifact in that portion and artifact in the EKG is well. Cannot appreciate any significant findings to suggest seizures. The patient tends to fall asleep and the background attenuates more. Again, there is no epileptic discharge in that part. Photic stimulation shows mild driving response. IMPRESSION: Abnormal EEG due to some mild slowing without any epileptiform features in this recording. Clinical correlation. MD SRINI [place]edo/CJ /8:33 PM /8:44 PM
[2016-08-17 05:27] VITALS: BP 121/68; PULSE 85; RESP 18; TEMP 97
[2016-08-17 06:00] VITALS: BP 121/68; PULSE 85; RESP 18; TEMP 97; O2SAT 97
[2016-08-17] MEDS: clonazePAM 0.5 MG TAB PO SCH ×3 (06:00→21:28)
[2016-08-17] MEDS: PROPRANOLOL HCL LA 120 MG CAP PO SCH (08:25)
[2016-08-17] MEDS: NICOTINE 21 MG/24 HR PATCH T-DERMAL SCH (08:34)
--- NOTE | 2016-08-17 16:28 | HHI.PYPN ---
Subjective Remarks Patient seen in day room with nurse Jagdeep, patient somewhat calmer though stirs still m[facility]p some anxiety and some diffuse confusion noted. Patient compliant medications. For now continue treatment Review of Systems Except as stated in HPI: all other systems reviewed are Neg Objective Alert: Yes [place]: Person Mood: Anxious Affect: Labile, Other (elevated) Memory Intact: Comment (Not assessed) Hallucinations: Other (No AVH reported but does appear somewhat internally preoccupied.) Delusions: No Delusion Type: Other (No delusions elicited today) Suicidal: Ideation (No SI) Homicidal: Ideation (No HI) Insight/Judgment Poor Vitals/IOs Vital Signs Date Time Temp Pulse Resp B/P Pulse Ox O2 Delivery O2 Flow Rate FiO2 08/17/16 06:00 97.0 85 18 121/68 97 Intake and Output 08/16/16 08/16/16 08/17/16 08:00 16:00 00:00 Intake Total 0 ml 480 ml 240 ml Balance 0 ml 480 ml 240 ml Assessment & Plan Problem List: (1) Bipolar disorder, current episode manic severe with psychotic features ICD Code: F31.2 Assessment & Plan Estimated LOS: days patient's echo softening somewhat though her paranoia and vigilance remain. Compliant medications Justification for Cont. Inpt. At this time patient will decompensate if placed in a lower level of care Discharge Planning To be determined Request HC Surrog/Guard Advoc?: Yes Bill Contreras MD August 17, 2016 16:28
[2016-08-17 19:37] VITALS: BP 108/62; PULSE 78; RESP 18; TEMP 97.8; O2SAT 96
[2016-08-17] MEDS: ZIPRASIDONE MESYLATE 20 MG VIAL IM SCH (21:00)
[2016-08-17] MEDS: REMOVE OLD NICODERM (NICOTINE) PATCH T-DERMAL SCH (21:00)
[2016-08-17] MEDS: ZIPRASIDONE HCL 20 MG CAP PO SCH (21:28)
[2016-08-18 05:10] VITALS: BP 148/68; PULSE 68; RESP 15; TEMP 97; O2SAT 95
[2016-08-18] MEDS: clonazePAM 0.5 MG TAB PO SCH ×3 (06:04→21:10)
[2016-08-18] MEDS: NICOTINE 21 MG/24 HR PATCH T-DERMAL SCH (09:00)
[2016-08-18] MEDS: PROPRANOLOL HCL LA 120 MG CAP PO SCH (09:30)
--- NOTE | 2016-08-18 13:23 | HHI.PYPN ---
Subjective Remarks Patient seen in day room with nurse Екатерина, chart reviewed, patient compliant medications. Patient still somewhat intrusive though rate and rhythm over speech is often there is less pressure to it she is to somewhat tangential guarded and vigilant led to his soften. For now continue treatment Review of Systems Except as stated in HPI: all other systems reviewed are Neg Objective Alert: Yes [place]: Person Mood: Anxious Affect: Labile, Other (elevated) Memory Intact: Comment (Not assessed) Hallucinations: Other (No AVH reported but does appear somewhat internally preoccupied.) Delusions: No Delusion Type: Other (No delusions elicited today) Suicidal: Ideation (No SI) Homicidal: Ideation (No HI) Insight/Judgment Poor Vitals/IOs Vital Signs Date Time Temp Pulse Resp B/P Pulse Ox O2 Delivery O2 Flow Rate FiO2 08/18/16 05:10 97.0 68 15 148/68 95 Intake and Output 08/17/16 08/17/16 08/18/16 08:00 16:00 00:00 Intake Total 360 ml 2790 ml Balance 360 ml 2790 ml Assessment & Plan Problem List: (1) Bipolar disorder, current episode manic severe with psychotic features ICD Code: F31.2 Assessment & Plan Estimated LOS: days patient family pressured speech has diminished, she is not as disorganized as previous days. Compliant with medications Justification for Cont. Inpt. At this time patient will decompensate if placed in the lower level of care Discharge Planning To be determined Request HC Surrog/Guard Advoc?: Yes Bill Contreras MD August 18, 2016 13:23
[2016-08-18 19:33] VITALS: BP 128/99; PULSE 78; RESP 16; TEMP 97.6; O2SAT 100
[2016-08-18] MEDS: ZIPRASIDONE MESYLATE 20 MG VIAL IM SCH (20:52)
[2016-08-18] MEDS: ZIPRASIDONE HCL 20 MG CAP PO SCH (20:52)
[2016-08-18] MEDS: REMOVE OLD NICODERM (NICOTINE) PATCH T-DERMAL SCH (21:00)
[2016-08-19 05:35] VITALS: BP 137/75; PULSE 70; RESP 15; TEMP 97.6; O2SAT 99
[2016-08-19] MEDS: clonazePAM 0.5 MG TAB PO SCH ×3 (06:02→21:03)
[2016-08-19] MEDS: NICOTINE 21 MG/24 HR PATCH T-DERMAL SCH (09:00)
--- NOTE | 2016-08-19 09:47 | HHI.PYPN ---
Subjective Remarks Patient seen in [facility] with nurse Augustina patient continues somewhat vigilant with pressured speech. Now stating she wishes to talk with her "public works laborer " and her her "health care surrogate, retired I did talk to patient's at [phone]. He reinforces his feeling that she remains quite delusional talked with him about conspiracy in the hospital that staff are taping her conversations. Patient is compliant medications though I question her motivation for compliance. Neurology consult to workup so far is nonconclusive for any organic problems Patient scheduled for [facility] tomorrow Review of Systems Except as stated in HPI: all other systems reviewed are Neg Objective Alert: Yes [place]: Person Mood: Anxious Affect: Labile, Other (elevated) Memory Intact: Comment (Not assessed) Hallucinations: Other (No AVH reported but does appear somewhat internally preoccupied.) Delusions: No Delusion Type: Other (No delusions elicited today) Suicidal: Ideation (No SI) Homicidal: Ideation (No HI) Insight/Judgment Poor Vitals/IOs Vital Signs Date Time Temp Pulse Resp B/P Pulse Ox O2 Delivery O2 Flow Rate FiO2 08/19/16 05:35 97.6 70 15 137/75 99 Intake and Output 08/18/16 08/18/16 08/19/16 08:00 16:00 00:00 Intake Total 100 ml 1320 ml Balance 100 ml 1320 ml Assessment & Plan Problem List: (1) Bipolar disorder, current episode manic severe with psychotic features ICD Code: F31.2 Assessment & Plan Estimated LOS: days patient remains manic with pressured speech, and paranoid/ grandiose delusions. Scheduled for [place] [facility] tomorrow patient will probably benefit from an increase in her medications we will wait for the outcome of the [place] [facility] first Justification for Cont. Inpt. At this time patient will decompensate if placed in the lower level of care Discharge Planning To be determined Request HC Surrog/Guard Advoc?: Yes Bill Contreras MD August 19, 2016 09:47
[2016-08-19] MEDS: PROPRANOLOL HCL LA 120 MG CAP PO SCH (09:58)
[2016-08-19] MEDS: REMOVE OLD NICODERM (NICOTINE) PATCH T-DERMAL SCH (21:00)
[2016-08-19] MEDS: ZIPRASIDONE MESYLATE 20 MG VIAL IM SCH (21:00)
[2016-08-19] MEDS: ZIPRASIDONE HCL 20 MG CAP PO SCH (21:03)
[2016-08-20 05:28] VITALS: BP 113/60; PULSE 65; RESP 18; TEMP 98
[2016-08-20] MEDS: clonazePAM 0.5 MG TAB PO SCH ×3 (05:33→20:24)
--- NOTE | 2016-08-20 08:40 | HHI.PYPN ---
Subjective Remarks Met with patient's this morning, he feels patient continues to be somewhat manic with her "demons" but also feel she is able to sign voluntary. He states she is willing to stay voluntarily for well continue treatment. Patient also seen this a.m. she verifies this. She still has rapid pressured speech but some of the paranoia and anger have an somewhat. Will lift [place] act allow patient to sign voluntary for now continue treatment Review of Systems Except as stated in HPI: all other systems reviewed are Neg Objective Alert: Yes [place]: Person Mood: Anxious Affect: Labile, Other (elevated) Memory Intact: Comment (Not assessed) Hallucinations: Other (No AVH reported but does appear somewhat internally preoccupied.) Delusions: No Delusion Type: Other (No delusions elicited today) Suicidal: Ideation (No SI) Homicidal: Ideation (No HI) Insight/Judgment Poor Vitals/IOs Vital Signs Date Time Temp Pulse Resp B/P Pulse Ox O2 Delivery O2 Flow Rate FiO2 08/20/16 05:28 98.0 65 18 113/60 08/19/16 05:35 99 Intake and Output 08/19/16 08/19/16 08/20/16 08:00 16:00 00:00 Intake Total 120 ml 240 ml Balance 120 ml 240 ml Assessment & Plan Problem List: (1) Bipolar disorder, current episode manic severe with psychotic features ICD Code: F31.2 Assessment & Plan Estimated LOS: days patient continues rapid pressured speech somewhat less vigilance or paranoid. Compliant medications. Will lift [place] act allow patient to sign voluntary Justification for Cont. Inpt. At this time patient will decompensate if placed in a lower level of care Discharge Planning To be determined Request HC Surrog/Guard Advoc?: Yes Bill Contreras MD August 20, 2016 08:40
[2016-08-20] MEDS: PROPRANOLOL HCL LA 120 MG CAP PO SCH (09:21)
[2016-08-20] MEDS: NICOTINE 21 MG/24 HR PATCH T-DERMAL SCH (09:22)
[2016-08-20 17:32] VITALS: BP 128/88; PULSE 83; RESP 18; TEMP 98.4; O2SAT 97
[2016-08-20] MEDS: ZIPRASIDONE HCL 20 MG CAP PO SCH (20:24)
[2016-08-20] MEDS: ZIPRASIDONE MESYLATE 20 MG VIAL IM SCH (21:00)
[2016-08-20] MEDS: REMOVE OLD NICODERM (NICOTINE) PATCH T-DERMAL SCH (21:00)
[2016-08-21] MEDS: clonazePAM 0.5 MG TAB PO SCH ×3 (05:35→20:49)
[2016-08-21 05:40] VITALS: BP 141/67; PULSE 62; RESP 15; TEMP 97.8; O2SAT 100
[2016-08-21] MEDS: NICOTINE 21 MG/24 HR PATCH T-DERMAL SCH (08:17)
[2016-08-21] MEDS: PROPRANOLOL HCL LA 120 MG CAP PO SCH (09:00)
--- NOTE | 2016-08-21 09:59 | HHI.PYPN ---
Subjective Remarks Patient seen in her room with nurse brad, chart reviewed. Patient continues with rapid pressured speech somewhat disorganized tangential and circumstantial. Attempts at discussing diagnosis with her leads her to becoming more irritable with denial of mental illness. However patient's intensity of her affect and lability are somewhat softer . When asked about her delusional ideation of people in her home she still acknowledge people in her home but she states she felt comfortable with them Patient compliant with her medication. Will increase Geodon to 40 mg at at bedtime Review of Systems Except as stated in HPI: all other systems reviewed are Neg Objective Alert: Yes [place]: Person Mood: Anxious Affect: Labile, Other (elevated) Memory Intact: Comment (Not assessed) Hallucinations: Other (No AVH reported but does appear somewhat internally preoccupied.) Delusions: No Delusion Type: Other (No delusions elicited today) Suicidal: Ideation (No SI) Homicidal: Ideation (No HI) Insight/Judgment Poor Vitals/IOs Vital Signs Date Time Temp Pulse Resp B/P Pulse Ox O2 Delivery O2 Flow Rate FiO2 08/21/16 05:40 97.8 62 15 141/67 100 Intake and Output 08/20/16 08/20/16 08/21/16 08:00 16:00 00:00 Intake Total 240 ml 1200 ml Balance 240 ml 1200 ml Assessment & Plan Problem List: (1) Bipolar disorder, current episode manic severe with psychotic features ICD Code: F31.2 Assessment & Plan Estimated LOS: days patient's intensity of mood slightly softer she continues rapid pressured speech, somewhat disorganized, still some delusional ideation noted see medication adjustment above Justification for Cont. Inpt. At this time patient will decompensate the placed at a lower level of care Discharge Planning To be determined Request HC Surrog/Guard Advoc?: Yes Bill Contreras MD August 21, 2016 09:59
[2016-08-21 17:47] VITALS: BP 119/67; PULSE 85; RESP 16; TEMP 97.6; O2SAT 95
[2016-08-21] MEDS: REMOVE OLD NICODERM (NICOTINE) PATCH T-DERMAL SCH (20:36)
[2016-08-21] MEDS ORDERED: ZIPRASIDONE MESYLATE 20 MG VIAL IM PRN (21:00)
[2016-08-21] MEDS ORDERED: ZIPRASIDONE HCL 20 MG CAP PO SCH (21:00)
[2016-08-22 05:23] VITALS: BP 138/65; PULSE 66; RESP 16; TEMP 97.7; O2SAT 97
[2016-08-22] MEDS: clonazePAM 0.5 MG TAB PO SCH ×3 (06:06→21:02)
[2016-08-22] MEDS: NICOTINE 21 MG/24 HR PATCH T-DERMAL SCH (07:53)
[2016-08-22] MEDS: PROPRANOLOL HCL LA 120 MG CAP PO SCH (08:49)
--- NOTE | 2016-08-22 12:23 | HHI.PYPN ---
Subjective Remarks Patient was seen and case discussed with nursing. Patient is pleasant and cooperative with exam. He is easily engaged and is alert and oriented 3 area she does appear very anxious for the interview. As a misunderstanding in her Geodon dose she is willing to take it today. We also change her dosing to dinnertime so she can have it with food. 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 She denies auditory or visualizations. No delusions elicited. Insight remains poor. Thought process remains circumstantial Objective Alert: Yes [place]: Person, Place, Date Mood: Anxious Affect: Labile Memory Intact: Comment (Not assessed) Hallucinations: Other (No AVH reported but does appear somewhat internally preoccupied.) Delusions: No Delusion Type: Other (No delusions elicited today) Suicidal: Ideation (No SI) Homicidal: Ideation (No HI) Insight/Judgment Poor Vitals/IOs Vital Signs Date Time Temp Pulse Resp B/P Pulse Ox O2 Delivery O2 Flow Rate FiO2 08/22/16 05:23 97.7 66 16 138/65 97 Intake and Output 08/21/16 08/21/16 08/22/16 08:00 16:00 00:00 Intake Total 480 ml 960 ml 1320 ml Balance 480 ml 960 ml 1320 ml Assessment & Plan Problem List: (1) Bipolar disorder, current episode manic severe with psychotic features ICD Code: F31.2 Assessment & Plan Change Geodon to dosing at dinner time Justification for Cont. Inpt. Patient will decompensate in a less restrictive setting Request HC Surrog/Guard Advoc?: Yes Marlo Angel DO August 22, 2016 12:23
[2016-08-22] MEDS: ZIPRASIDONE HCL 20 MG CAP PO SCH (17:53)
[2016-08-22 18:00] VITALS: BP 126/77; PULSE 80; TEMP 97.1; O2SAT 98
[2016-08-22 19:54] LABS: THROMBIN TIME FOR LA ND sec (13-19)
[2016-08-22] MEDS: REMOVE OLD NICODERM (NICOTINE) PATCH T-DERMAL SCH (20:50)
[2016-08-23 05:54] VITALS: BP 124/81; PULSE 71; RESP 16; TEMP 97.5; O2SAT 99
[2016-08-23] MEDS: clonazePAM 0.5 MG TAB PO SCH ×3 (07:08→21:24)
[2016-08-23] MEDS: NICOTINE 21 MG/24 HR PATCH T-DERMAL SCH (09:00)
[2016-08-23] MEDS: PROPRANOLOL HCL LA 120 MG CAP PO SCH (09:04)
--- NOTE | 2016-08-23 12:45 | HHI.PYPN ---
Subjective Remarks Patient was seen and case discussed with nursing. Patient remains alert and oriented 4. Remains very anxious and argumentative about her reasons for admission. Patient claims that it is because she had psychosis secondary to an Ambien that she took. Behaving well on the unit. Somewhat preoccupied with which medications she is taking Objective Alert: Yes [place]: Person, Place, Date, Situation Mood: Anxious Affect: Other (anxious) Memory Intact: Comment (Not assessed) Hallucinations: Other (No AVH reported but does appear somewhat internally preoccupied.) Delusions: No Delusion Type: Other (No delusions elicited today) Suicidal: Ideation (No SI) Homicidal: Ideation (No HI) Insight/Judgment fair Vitals/IOs Vital Signs Date Time Temp Pulse Resp B/P Pulse Ox O2 Delivery O2 Flow Rate FiO2 08/23/16 05:54 97.5 71 16 124/81 99 Intake and Output 08/22/16 08/22/16 08/23/16 08:00 16:00 00:00 Intake Total 480 ml 840 ml Balance 480 ml 840 ml Assessment & Plan Problem List: (1) Bipolar disorder, current episode manic severe with psychotic features ICD Code: F31.2 Assessment & Plan Continue current treatment plan Justification for Cont. Inpt. Patient will decompensate in a less restrictive setting Request HC Surrog/Guard Advoc?: Yes Marlo Angel DO August 23, 2016 12:45
[2016-08-23] MEDS: ZIPRASIDONE HCL 20 MG CAP PO SCH (18:00)
[2016-08-23 20:01] VITALS: BP 146/70; PULSE 72; RESP 18; TEMP 97.4; O2SAT 99
[2016-08-23] MEDS: REMOVE OLD NICODERM (NICOTINE) PATCH T-DERMAL SCH (21:00)
[2016-08-24] MEDS: clonazePAM 0.5 MG TAB PO SCH ×3 (06:26→21:54)
[2016-08-24 06:36] VITALS: BP 132/75; PULSE 69; RESP 18; TEMP 97.9; O2SAT 97
[2016-08-24] MEDS: PROPRANOLOL HCL LA 120 MG CAP PO SCH (08:50)
[2016-08-24] MEDS: NICOTINE 21 MG/24 HR PATCH T-DERMAL SCH (08:51)
--- NOTE | 2016-08-24 11:56 | HHI.PYPN ---
Subjective Remarks Patient seen in day room with her and nurse Jagdeep, it appears there is some confusion and manipulation of the weekend by the patient with surrounding psychiatrist. The may have been some confusion also scheduling of the Geodon. Patient now refusing to take the Geodon. Saying the rounding physician told her to stop taking it that it was dangerous and that she should not take it when she is discharged. This is not with progress note reflects over the weekend. However patient continues to show very little insight into her disease continues quite contentious when discussing medication diagnosis or treatment. Her agrees that she is not much better. The also remains somewhat overwhelmed by her. For now we will discontinue the Geodon offer patient Abilify 5 mg twice a day in its place Review of Systems Except as stated in HPI: all other systems reviewed are Neg Objective Alert: Yes [place]: Person, Place, Date, Situation Mood: Anxious Affect: Other (anxious) Memory Intact: Comment (Not assessed) Hallucinations: Other (No AVH reported but does appear somewhat internally preoccupied.) Delusions: No Delusion Type: Other (No delusions elicited today) Suicidal: Ideation (No SI) Homicidal: Ideation (No HI) Insight/Judgment Very poor Vitals/IOs Vital Signs Date Time Temp Pulse Resp B/P Pulse Ox O2 Delivery O2 Flow Rate FiO2 08/24/16 06:36 97.9 69 18 132/75 97 Intake and Output 08/23/16 08/23/16 08/23/16 07:59 15:59 23:59 Intake Total 0 ml 1080 ml 720 ml Balance 0 ml 1080 ml 720 ml Assessment & Plan Problem List: (1) Bipolar disorder, current episode manic severe with psychotic features ICD Code: F31.2 Assessment & Plan Estimated LOS: days patient remains psychotic manic with no insight into her disease. Markedly resistant to medications. See medication adjustment above Justification for Cont. Inpt. At this time patient will decompensate if placed in a lower level of care Discharge Planning To be determined Request HC Surrog/Guard Advoc?: No Bill Contreras MD August 24, 2016 11:56
[2016-08-24] MEDS: ARIPiprazole 5 MG TAB PO SCH ×2 (13:21→21:54)
[2016-08-24 16:35] LABS: HEPATCARBOXYLPORPHYRINS <1 nmol/24 h (<=9); HEXACARBOXYL PORPHYRINS <1 nmol/24 h (<=8); PENTACARBOXYL PORPHYRINS 2 nmol/24 h (<=10); PORPHOBILINOGEN 0.2 mcmol/24 h (<=2.2); PORPHYRINS QN COLLECTION DUR 24 h (()); PORPHYRINS QN UR TOTAL VOLUME 850 mL (())
[2016-08-24 17:00] VITALS: BP 142/78; PULSE 70; RESP 18; TEMP 96.9
[2016-08-24] MEDS: REMOVE OLD NICODERM (NICOTINE) PATCH T-DERMAL SCH (21:00)
[2016-08-25 06:00] VITALS: BP 140/71; PULSE 72; RESP 18; TEMP 98.3; O2SAT 99
[2016-08-25] MEDS: clonazePAM 0.5 MG TAB PO SCH ×3 (06:00→20:46)
[2016-08-25] MEDS: NICOTINE 21 MG/24 HR PATCH T-DERMAL SCH (07:50)
[2016-08-25] MEDS: ARIPiprazole 5 MG TAB PO SCH ×2 (08:22→20:46)
[2016-08-25] MEDS: PROPRANOLOL HCL LA 120 MG CAP PO SCH (08:22)
--- NOTE | 2016-08-25 16:05 | HHI.PYPN ---
Subjective Remarks Patient seen in day room with nurse Jagdeep, patient calm pleasant with me though soon became somewhat irritable making multiple somatic complaints focused on the Abilify. When I reminded her that I initially recommended 10 mg twice a day but decreased that to 5 mg twice a day due to patient's request she became angry and refused to accept that. Following that she refuse to speak with me anymore. However she is compliant, and no behavioral problems. For now continue treatment Review of Systems Except as stated in HPI: all other systems reviewed are Neg Objective Alert: Yes [place]: Person, Place, Date, Situation Mood: Anxious Affect: Other (anxious) Memory Intact: Comment (Not assessed) Hallucinations: Other (No AVH reported but does appear somewhat internally preoccupied.) Delusions: No Delusion Type: Other (No delusions elicited today) Suicidal: Ideation (No SI) Homicidal: Ideation (No HI) Insight/Judgment Very poor Vitals/IOs Vital Signs Date Time Temp Pulse Resp B/P Pulse Ox O2 Delivery O2 Flow Rate FiO2 08/25/16 06:00 98.3 72 18 140/71 99 Intake and Output 08/24/16 08/24/16 08/24/16 07:59 15:59 23:59 Intake Total 1920 ml 420 ml Balance 1920 ml 420 ml Assessment & Plan Problem List: (1) Bipolar disorder, current episode manic severe with psychotic features ICD Code: F31.2 Assessment & Plan Estimated LOS: days patient continues manic somewhat paranoid with poor insight though reluctantly compliant medication Justification for Cont. Inpt. At this time patient decompensate placed in a lower level of care Discharge Planning To be determined Request HC Surrog/Guard Advoc?: No Bill Contreras MD August 25, 2016 16:05
[2016-08-25 18:15] VITALS: BP 135/81; PULSE 75; RESP 16; TEMP 99.1; O2SAT 96
[2016-08-25] MEDS: REMOVE OLD NICODERM (NICOTINE) PATCH T-DERMAL SCH (20:47)
[2016-08-26 05:28] VITALS: BP 110/71; PULSE 79; RESP 16; TEMP 98.4; O2SAT 96
[2016-08-26] MEDS: clonazePAM 0.5 MG TAB PO SCH ×3 (05:54→21:03)
[2016-08-26] MEDS: NICOTINE 21 MG/24 HR PATCH T-DERMAL SCH (08:50)
[2016-08-26] MEDS: ARIPiprazole 5 MG TAB PO SCH ×2 (08:51→21:03)
[2016-08-26] MEDS: PROPRANOLOL HCL LA 120 MG CAP PO SCH (08:51)
--- NOTE | 2016-08-26 09:27 | HHI.PYPN ---
Subjective Remarks Patient seen in day room with nurse Martine, chart review, Patient less agitated and irritable today, calmer with me today, compliant medication today making no complaints about the medication. For now continue treatment Review of Systems Except as stated in HPI: all other systems reviewed are Neg Objective Alert: Yes [place]: Person, Place, Date, Situation Mood: Anxious Affect: Other (anxious) Memory Intact: Comment (Not assessed) Hallucinations: Other (No AVH reported but does appear somewhat internally preoccupied.) Delusions: No Delusion Type: Other (No delusions elicited today) Suicidal: Ideation (No SI) Homicidal: Ideation (No HI) Insight/Judgment Poor Vitals/IOs Vital Signs Date Time Temp Pulse Resp B/P Pulse Ox O2 Delivery O2 Flow Rate FiO2 08/26/16 05:28 98.4 79 16 110/71 96 Intake and Output 08/25/16 08/25/16 08/26/16 08:00 16:00 00:00 Intake Total 360 ml 1320 ml 600 ml Balance 360 ml 1320 ml 600 ml Assessment & Plan Problem List: (1) Bipolar disorder, current episode manic severe with psychotic features ICD Code: F31.2 Assessment & Plan Estimated LOS: days patient showing some slight decrease in her rapid pressured speech, she is less irritable today less vigilance. Compliant medication. For now continue treatment Justification for Cont. Inpt. At this time patient will decompensate the placed in a lower level of care Discharge Planning To be determined Request HC Surrog/Guard Advoc?: No Bill Contreras MD August 26, 2016 09:27
[2016-08-26 16:00] VITALS: BP 121/72; PULSE 72; RESP 16; TEMP 98.3; O2SAT 96
[2016-08-26] MEDS: REMOVE OLD NICODERM (NICOTINE) PATCH T-DERMAL SCH (20:11)
[2016-08-27 05:30] VITALS: BP 142/66; PULSE 69; RESP 16; TEMP 97.8
[2016-08-27] MEDS: clonazePAM 0.5 MG TAB PO SCH ×3 (06:29→20:57)
[2016-08-27] MEDS: NICOTINE 21 MG/24 HR PATCH T-DERMAL SCH (09:00)
[2016-08-27] MEDS: ARIPiprazole 5 MG TAB PO SCH ×2 (09:22→20:57)
[2016-08-27] MEDS: PROPRANOLOL HCL LA 120 MG CAP PO SCH (09:22)
--- NOTE | 2016-08-27 15:08 | HHI.PYPN ---
Subjective Remarks Patient seen in dayroom with nurse Sharla. Chart reviewed. Patient somewhat calmer states no problems with the medication that she didn't sleep well last night. For now continue treatment Review of Systems Except as stated in HPI: all other systems reviewed are Neg Objective Alert: Yes [place]: Person, Place, Date, Situation Mood: Anxious Affect: Other (anxious) Memory Intact: Comment (Not assessed) Hallucinations: Other (No AVH reported but does appear somewhat internally preoccupied.) Delusions: No Delusion Type: Other (No delusions elicited today) Suicidal: Ideation (No SI) Homicidal: Ideation (No HI) Insight/Judgment Poor Vitals/IOs Vital Signs Date Time Temp Pulse Resp B/P Pulse Ox O2 Delivery O2 Flow Rate FiO2 08/27/16 05:30 97.8 69 16 142/66 08/26/16 16:00 96 Intake and Output 08/26/16 08/26/16 08/27/16 08:00 16:00 00:00 Intake Total 240 ml 1080 ml 1080 ml Balance 240 ml 1080 ml 1080 ml Assessment & Plan Problem List: (1) Bipolar disorder, current episode manic severe with psychotic features ICD Code: F31.2 Assessment & Plan Estimated LOS: days patient somewhat less intense and irritable today, compliant medications for now continue treatment Justification for Cont. Inpt. At this time patient will decompensate if placed in a lower level of care Discharge Planning To be determined Request HC Surrog/Guard Advoc?: No Bill Contreras MD August 27, 2016 15:08
[2016-08-27 17:29] VITALS: BP 109/57; PULSE 72; RESP 18; TEMP 98.1; O2SAT 98
[2016-08-27] MEDS: REMOVE OLD NICODERM (NICOTINE) PATCH T-DERMAL SCH (20:10)
[2016-08-28] MEDS: clonazePAM 0.5 MG TAB PO SCH (05:50)
[2016-08-28 06:27] VITALS: BP 108/79; PULSE 76; RESP 17; TEMP 96.8; O2SAT 98
[2016-08-28] MEDS: NICOTINE 21 MG/24 HR PATCH T-DERMAL SCH (09:00)
[2016-08-28] MEDS: PROPRANOLOL HCL LA 120 MG CAP PO SCH (09:04)
[2016-08-28] MEDS: ARIPiprazole 5 MG TAB PO SCH (09:04)
[2016-08-28] MEDS ORDERED: CLON.5 PO (11:35)
[2016-08-28] MEDS ORDERED: ARIP1TAB11 PO (11:35)
[2016-08-28] MEDS ORDERED: PROP120 PO (11:35)
--- NOTE | 2016-08-28 11:43 | HHI.DS ---
Psychiatry Discharge Summary Inpatient Psychiatric care?: Yes Advance Directive: No Reason Not Provided: none Mental Health AdvanceDirective: No Health Care Proxy: No Admission Admission Date August 11, 2016 at 17:24 Admission Diagnosis: (1) Bipolar disorder, current episode manic severe with psychotic features ICD Code: F31.[address] Contreras's H&P: Patient is a 76-year-old white female comes here under Flores act from [facility] Flores act dated 08/11/16 0755 hours by a Parish huynh that report reviewed essentially stating that patient was seeing people and animals were not present in claiming that the major AP both/animals are gypsies a titer up then performed a [place] maneuver of the seventh floor of her building. There stating the patient takes Ambien and Xanax but has not slept well for about 4 days. Patient's also stated that she fell earlier in the morning and it's unknown if she hit her head. It appears the patient became more angry and agitated with pink questioned by the lawnmower repair mechanic she also became more angry when her attempted to calm her down becoming more belligerent and appearing as if sure becoming violent. Patient seen screen at that facility urine toxicology positive for benzodiazepines and opiates. At the present time patient standing quietly with me in the eng counselor María Elena and nurse Martine present throughout session. Patient is an alert thin slender white female somewhat disheveled in appearance with a marked [place]vian accent speaking in a rapid pressured intense manner showing some anxiety and fine tremulousness. Patient appears fairly well oriented to place time and situation, other times also appears to be using approximations to cover perhaps some mild memory issues. She describes these people coming into her home speaking to her describes them as gypsies like nature though showing some rationalization with this. She became somewhat flustered as I question her more in detail. Patient states she has a PhD in psychology was quite active at the [employer] and some mental health programs there. She states that her is a psychiatrist and also worked for the [employer] from [facility]. She does make appropriate references to that area. When asked about her own mental health issues she became quite vague and defensive that appear she may have had some type of contact in the past. She does acknowledge being "high strung" like much of her family. She also acknowledges frequent alcohol use basically wine or "wind spritzers" though she denies any legal issues related to that. She makes vague illusion to perhaps using marijuana while in college herself. She denies any physical and/or sexual abuse. Denies any mental illness in her family of origin. This is her second marriage. She has 2 children by her first marriage and is a grandmother. Patient made of vague reference to perhaps a similar psychotic type episode a number of years ago. I did attempt to reach patient's was unsuccessful we will have a counselor attempt to reach him. Would like to environment to meet with us tomorrow morning. At the present time patient meets criteria for further observation under the Flores act thus I'll do first opinion requests a second opinion. Will have hospitalist consult less patient states some history of cholesterol issues and also to observe vague history of a fall. We'll place her on theciwa protocol due to the alcohol abuse history. Will refrain from any antipsychotics at the present time further observe we need further information also for the patient's perhaps a neurology consult might be indicated On my examination today: Patient seen and examined. Chart reviewed. Documentation from outside hospital reviewed. Case discussed with RN. On my examination today, patient's thought process is circumstantial, at times tangential. She is an extremely prolix historian, and her speech is pressured and rambling, with numerous discursive asides. She is difficult to interrupt. She loses her train of thought on more than one occasion. It is therefore exceedingly difficult to obtain a linear narrative. As near as I can tell, the patient continues to believe that there were intruders in her home. She blames her for leaving several of the doors unlocked. She says that she went to speak with the CLOCK AND WATCH ASSEMBLER of the [employer] board ("an [employer] richard" and "I have found that VPs [of [employer]] are not very successful, and this one wasn't") who subsequently called the police. She takes particular umbrage that the officer and the CLOCK AND WATCH ASSEMBLER termed her belief about the intruders a delusion. Affect is generally dysphoric. She reports poor sleep. She is suspicious of the motives of staff and alludes to a "cover up." She is somewhat querulous and faultfinding. Obsessive compulsive personalty traits are noted. She does not verbalize any SI or HI. Although I spent nearly an hour in consultation with this patient, pertinent clinical information is otherwise limited because of her verbosity and thought disorder. Patient declines to provide past psychiatric, family, chemical dependency or social history noting that 4 other people have asked these questions. She does allude to a previous involuntary commitment in [place] (although this may have been in reference to her , her explanation of this episode is particularly opaque) but does not describe any history of suicide attempts. She does not describe any drug or alcohol issues. She is . 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 She reports that she is well-connected in political circles in [place] where she is from. Tobacco Use In Past 30 Days: No Tobacco Past 30 Days Alcohol Use: 2-3 Times Per Week Hospital Course Patient's hospital course initially showed the significant echo with psychotic features, with poor insight by the patient. However with continued stay her compliance with her medication improved the switching from Geodon to Abilify appears to really help the patient calm. We also did have meetings with patient 's who assisted us in determining the level of response. Met with patient and her today patient calmer more focused does acknowledge a coming softening affect felt the meds she feels positive about them. She states she is willing to continue taking the medication on outpatient basis. Patient's also feels she is doing much better. At this time I feel patient had reached maximum benefit of this hospitalization. Thus we'll discharge her today to her . Rx 1 month including of the Klonopin at 0.5 every 8 hours. To follow-up with psychiatric services in the [facility] counselors arranging that appointment now Results Blood Pressure 108 / 79 Vital Signs Date Time Temp Pulse Resp B/P Pulse Ox O2 Delivery O2 Flow Rate FiO2 08/28/16 06:27 96.8 76 17 108/79 98 Please see EMR for full lab results Summary of Procedures None done Imaging Last Impressions Brain MRI 08/15/16 0000 Signed Impressions: Service Date/Time: Monday, August 15, 2016 17:13 - CONCLUSION: 1. Mild periventricular white matter small vessel ischemic changes bilaterally. 2. No acute infarct, acute hemorrhage, mass effect or extra axial fluid collections. Lopez Bright MD Pending results at discharge: No Medications # of Antipsychotic meds at D/C: 1 Approp Antipsych med options 1 - Minimum of three failed multiple trials of monotherapy. 2 - Documented plan to taper to monotherapy due to previous use of multiple meds OR cross-taper in progress at D/C. 3 - Documentation of augmentation of Clozapine. 4 - Justification other than those listed in allowable values 1-3, document here : Discharge Discharge Date: August 28, 2016 Discharge Diagnosis: (1) Bipolar disorder, current episode manic severe with psychotic features Diagnosis: Principal ICD Code: F31.2 Mental Status Exam at Disch Alert oriented white female appears stated age. She is normal active. Speech rate and rhythm a slightly increased remains mildly pressure though markedly improved from admission. There are no formal thought disorders. Patient's mood is euthymic with slight increase range of motion intensity there are no auditory or visual hallucinations no delusions. Insight and judgment is fair cognition grossly intact Pt Condition on Discharge: Stable Discharge Disposition: Discharge Home Discharge Instructions Diet Instructions: As Tolerated, No Restrictions Activities you can perform: Regular-No Restrictions Scheduled Appointment: follow-up private psychiatrist through the [facility] Discharge Time > 30 minutes Discharge/Advance Care Plan Health Problems: (1) Bipolar disorder, current episode manic severe with psychotic features Goals to promote your health * To prevent worsening of your condition and complications * To maintain your health at the optimal level Directions to meet your goals Take your medications as prescribed Follow your dietary instruction Follow activity as directed Keep your appointments as scheduled Take your immunizations and boosters as scheduled If your symptoms worsen call your PCP, if no PCP go to Urgent Care Center or Emergency Room For 26/10 questions related to your inpatient stay or results of tests pending at discharge, please contact Dr. Bill Contreras at Smoking is Dangerous to Your Health. Avoid second hand smoking Bill Contreras MD August 28, 2016 11:43
== END 2016-08-28 13:40 | disposition home or self-care (01) | DRG 885 ==
LOC: H250 17:24
PROVIDERS: ADMIT Psychiatry & Neurology Psychiatry; ATTEND Psychiatry & Neurology Psychiatry
DX: F31.2 Bipolar disorder, current episode manic severe with psychotic features (principal); I10 Essential (primary) hypertension; G25.0 Essential tremor
CPT/HCPCS: 70551; 82607; 84110; 84120; 84439; 84443; 85613; 85652; 85730; 86038; 86147; 95819; J3486